=== PATIENT | male | born 2000 | race Caucasian/White ===

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

== ENCOUNTER 2019-06-23 21:24 | Emergency (ER) | payer OTHER ==
[2019-06-23 21:28] VITALS: BP 137/87; PULSE 78
[2019-06-23 22:08] VITALS: RESP 18
--- NOTE | 2019-06-23 22:16 | XR ---
EXAMINATION TYPE: XR chest 2V DATE OF EXAM: 06/23/2019 COMPARISON: 12/04/2016 HISTORY: Cough TECHNIQUE: FINDINGS: Heart and mediastinum are normal. Lungs are clear. Diaphragm is normal. Bony thorax appears normal. IMPRESSION: Normal chest. No change.
[2019-06-23] MEDS ORDERED: AMOXIC-POT CLAV 875MG STARTER PACK 2 TAB BTL PO STA (22:36)
--- NOTE | 2019-06-23 22:40 | ED ---
General Adult HPI - General Chief complaint: Upper Respiratory Infection Stated complaint: Cough Time Seen by Provider: 06/23/19 21:34 Source: patient, RN notes reviewed Mode of arrival: ambulatory Limitations: no limitations - History of Present Illness Initial comments: 19-year-old male presents to the emergency room for a chief complaint of congestion and cough. Patient states that he has been congested for about a week and a half and it does not seem to be improving. This is patient's main complaint. Patient has not checked a temperature at home so is not aware of fevers but did feel warm earlier today. Patient denies any swelling of the face. Patient has mild cough but states it is not significant. Patient does admit to vaping but denies smoking cigarettes. Denies headache or neck pain. Patient has no other complaints at this time including shortness of breath, chest pain, abdominal pain, nausea or vomiting, headache, or visual changes. - Related Data Previous Rx's Medication Instructions Recorded Amoxic-Pot Clav 875-125Mg 1 tab PO Q12HR #20 tablet 06/23/19 [Augmentin 875-125] Allergies Allergy/AdvReac Type Severity Reaction Status Date / Time No Known Allergies Allergy Verified 06/23/19 21:28 Review of Systems ROS Statement: Those systems with pertinent positive or pertinent negative responses have been documented in the HPI. ROS Other: All systems not noted in ROS Statement are negative. Past Medical History Past Medical History: Asthma History of Any Multi-Drug Resistant Organisms: None Reported Past Surgical History: No Surgical Hx Reported Past Psychological History: ADD/ADHD, Bipolar Smoking Status: Current every day smoker Past Alcohol Use History: None Reported Past Drug Use History: None Reported General Exam Limitations: no limitations General appearance: alert, in no apparent distress Head exam: Present: atraumatic, normocephalic, normal inspection Eye exam: Present: normal appearance, PERRL, EOMI. Absent: scleral icterus, conjunctival injection, periorbital swelling ENT exam: Present: normal exam, normal oropharynx, mucous membranes moist, TM's normal bilaterally, normal external ear exam, other (Patient is a tenderness on palpating the maxillary sinus however no erythema or edema.) Neck exam: Present: normal inspection, full ROM. Absent: tenderness, meningismus, lymphadenopathy Respiratory exam: Present: normal lung sounds bilaterally. Absent: respiratory distress, wheezes, rales, rhonchi, stridor Cardiovascular Exam: Present: regular rate, normal rhythm, normal heart sounds. Absent: systolic murmur, diastolic murmur, rubs, gallop, clicks GI/Abdominal exam: Present: soft, normal bowel sounds. Absent: distended, tenderness, guarding, rebound, rigid Neurological exam: Present: alert Course Vital Signs 06/23/19 06/23/19 06/23/19 21:26 22:07 22:40 Temperature 98.1 F 98.8 F Pulse Rate 78 Respiratory 20 18 Rate Blood Pressure 137/87 O2 Sat by Pulse 99 Oximetry 06/23/19 22:41 Temperature 98.8 F Pulse Rate 78 Respiratory 18 Rate Blood Pressure 137/87 O2 Sat by Pulse 99 Oximetry Medical Decision Making - Medical Decision Making Vitals are stable. Patient is afebrile. On exam patient does have tenderness of the maxillary sinuses. Exam is otherwise unremarkable. Uvula is midline, no tonsillar exudates bilaterally. Lungs are clear to auscultation. Tympanic membranes are nonerythematous. Full range of motion of the neck. No meningismus. Infleunza is negative. Chest XR is negative for acute cardiopulmonary process. At this time patient stating his ankle if his congestion. As symptoms have been ongoing for a week and a half he will be treated with Augmentin. He is taking Mucinex and nasal spray at home he will continue. He will return here for any worsening symptoms. These were discussed with him in depth and include facial swelling, high fevers, or headache. Girlfriend is at bedside and is in agreement as well. I discussed this case with attending Dr. Mccartney who agrees with this assessment and treatment plan. - Lab Data Lab Results 06/23/19 Range/Units 21:30 Influenza Type A RNA Not Detected (Not Detectd) Influenza Type B (PCR) Not Detected (Not Detectd) Disposition Clinical Impression: Sinusitis Disposition: HOME SELF-CARE Condition: Good Instructions (If sedation given, give patient instructions): Sinusitis (ED) Additional Instructions: Please take Augmentin as directed. Continue to take Mucinex and nasal spray. Follow-up with primary care in 1-2 days. If you have any worsening symptoms return to the emergency department. Prescriptions: Amoxic-Pot Clav 875-125Mg [Augmentin 875-125] 1 tab PO Q12HR #20 tablet Is patient prescribed a controlled substance at d/c from ED?: No Referrals: Genie Reaves MD [REFERRING] - 1-2 days Time of Disposition: 22:38
[2019-06-23 22:41] VITALS: TEMP 98.8
== END 2019-06-23 22:46 | disposition home or self-care (01) ==
LOC: EC 21:24
DX: J32.0 Chronic maxillary sinusitis (principal); F17.290 Nicotine dependence, other tobacco product, uncomplicated; Z87.09 Personal history of other diseases of the respiratory system
CPT/HCPCS: 71046; 87502; 99283

== ENCOUNTER 2020-02-12 00:34 | Emergency (ER) | payer OTHER ==
[2020-02-12 00:44] VITALS: BP 126/78; PULSE 67; RESP 15; TEMP 97.7
--- NOTE | 2020-02-12 01:16 | ED ---
Skin/Abscess/FB HPI - General Chief complaint: Skin/Abscess/Foreign Body Stated complaint: Abscess Time Seen by Provider: 02/12/20 00:51 Source: patient Mode of arrival: ambulatory - History of Present Illness Initial comments: This patient is 19-year-old man who presents to be evaluated for what he is is calling a cyst at his anus. The patient states that he had had a bowel movement at work tonight. Following that he noticed a lump at his anus. He went home and had someone take a look who told him there was a small purple lump there, patient denies yolette pain. He states there is a little discomfort. No abdominal symptoms. MD complaint: other -: hour(s) Location: buttocks Consistency: constant Improves with: none Worsens with: none Context: none Associated symptoms: denies other symptoms - Related Data Previous Rx's Medication Instructions Recorded Amoxic-Pot Clav 875-125Mg 1 tab PO Q12HR #20 tablet 06/23/19 [Augmentin 875-125] Hydrocortisone [Anusol-Hc] 30 gm TP BID #30 gram 02/12/20 Allergies Allergy/AdvReac Type Severity Reaction Status Date / Time No Known Allergies Allergy Verified 06/23/19 21:28 Review of Systems ROS Statement: Those systems with pertinent positive or pertinent negative responses have been documented in the HPI. ROS Other: All systems not noted in ROS Statement are negative. Constitutional: Denies: fever, chills Gastrointestinal: Denies: abdominal pain, nausea, vomiting, diarrhea, constipation Skin: Reports: as per HPI Past Medical History Past Medical History: Asthma History of Any Multi-Drug Resistant Organisms: None Reported Past Surgical History: No Surgical Hx Reported Past Psychological History: ADD/ADHD Smoking Status: Current some day smoker Past Alcohol Use History: None Reported Past Drug Use History: None Reported General Exam General appearance: alert, in no apparent distress GI/Abdominal exam: Present: soft. Absent: distended, tenderness, guarding, rebound, rigid, mass, pulsatile mass, hernia Rectal exam: Present: normal rectal tone, hemorrhoids (Patient has an approximately 1 cm hemorrhoid at approximately 9 o'clock position. No real tenderness. Does not appear thrombosed. No bleeding.). Absent: tenderness Neurological exam: Present: alert Skin exam: Present: warm, dry, intact, normal color. Absent: rash Course Vital Signs 02/12/20 00:38 Temperature 97.7 F Pulse Rate 67 Respiratory 15 Rate Blood Pressure 126/78 O2 Sat by Pulse 100 Oximetry Medical Decision Making - Medical Decision Making Discussed further care and follow-up as well as return parameters for hemorrhoid care. Disposition Clinical Impression: Hemorrhoid Disposition: HOME SELF-CARE Condition: Good Instructions (If sedation given, give patient instructions): Hemorrhoids (ED) Prescriptions: Hydrocortisone [Anusol-Hc] 30 gm TP BID #30 gram Is patient prescribed a controlled substance at d/c from ED?: No Referrals: None,Stated [Primary Care Provider] - 1-2 days
== END 2020-02-12 01:26 | disposition home or self-care (01) ==
LOC: EC 00:34
DX: K64.9 Unspecified hemorrhoids (principal); F17.200 Nicotine dependence, unspecified, uncomplicated
CPT/HCPCS: 99283

== ENCOUNTER 2020-04-24 13:34 | Emergency (ER) | payer OTHER ==
[2020-04-24 13:39] VITALS: BP 131/79; PULSE 72; RESP 20; TEMP 98
--- NOTE | 2020-04-24 14:17 | ED ---
General Adult HPI - General Chief complaint: Extremity Injury, Upper Stated complaint: R Hand Injury Time Seen by Provider: 04/24/20 13:40 Source: patient, RN notes reviewed Mode of arrival: ambulatory Limitations: no limitations - History of Present Illness Initial comments: 19-year-old male with a past medical history of asthma presents to the emergency room for a chief complaint of right hand injury. Patient states 4 days ago he was working on a car and he hit his right hand against the car. States that the pain is actually improved however when he supinates his hand he still feels pain in his wrist which prompted him to get evaluated. Patient denies any other injuries. Denies any proximal arm pain.Patient has no other complaints at this time including shortness of breath, chest pain, abdominal pain, nausea or vomiting, headache, or visual changes. - Related Data Home Medications Medication Instructions Recorded Confirmed Ibuprofen [Motrin Ib] 600 mg PO Q8H PRN 04/24/20 04/24/20 Allergies Allergy/AdvReac Type Severity Reaction Status Date / Time No Known Allergies Allergy Verified 04/24/20 14:23 Review of Systems ROS Statement: Those systems with pertinent positive or pertinent negative responses have been documented in the HPI. ROS Other: All systems not noted in ROS Statement are negative. Past Medical History Past Medical History: Asthma History of Any Multi-Drug Resistant Organisms: None Reported Past Surgical History: No Surgical Hx Reported Past Psychological History: ADD/ADHD Smoking Status: Current some day smoker Past Alcohol Use History: None Reported Past Drug Use History: None Reported General Exam Limitations: no limitations General appearance: alert, in no apparent distress Head exam: Present: atraumatic, normocephalic, normal inspection Eye exam: Present: normal appearance, PERRL, EOMI. Absent: scleral icterus, conjunctival injection, periorbital swelling ENT exam: Present: normal exam, mucous membranes moist Neck exam: Present: normal inspection, full ROM. Absent: tenderness, meningismus, lymphadenopathy Respiratory exam: Present: normal lung sounds bilaterally. Absent: respiratory distress, wheezes, rales, rhonchi, stridor Cardiovascular Exam: Present: regular rate, normal rhythm, normal heart sounds. Absent: systolic murmur, diastolic murmur, rubs, gallop, clicks GI/Abdominal exam: Present: soft, normal bowel sounds. Absent: distended, tenderness, guarding, rebound, rigid Extremities exam: Present: full ROM (Full range of motion of the right hand and wrist without pain), tenderness (No tenderness to the right hand or wrist. No scaphoid tenderness.), normal capillary refill (Capillary refill less than 2 seconds, radial pulse 2+ in the right upper extremity.), other (Sensation intact right upper extremity. When patient supinates right hand he does experience pain in the volar aspect of the right wrist.). Absent: joint swelling (No significant swelling right hand or wrist.) Course Vital Signs 04/24/20 13:38 Temperature 98.0 F Pulse Rate 72 Respiratory 20 Rate Blood Pressure 131/79 O2 Sat by Pulse 98 Oximetry Procedures - Orthopedic Splinting/Casting Injury #1 Side: right Upper Extremity Injury Location: wrist Upper Extremity Immobilizer: volar splint Additional Comments: Neurovascular status intact Medical Decision Making - Medical Decision Making Vitals are stable. Patient does not have any tenderness in the right hand or dorsum of the right wrist. He doesn't tenderness to the ulnar styloid. No erythema or abrasions. There is minimal edema of the ulnar styloid. Neurovascular status intact right upper extremity. X-ray of the right wrist shows a fracture of the ulnar styloid. There is a probable old avulsion fracture at the base of the fifth metacarpal however no acute fractures and the right hand. Patient was placed in a volar wrist splint and referred to orthopedics. Discussed rice therapy and Tylenol for pain. He will return here for any worsening symptoms. Disposition Clinical Impression: Fracture of ulnar styloid Disposition: HOME SELF-CARE Condition: Good Instructions (If sedation given, give patient instructions): Wrist Fracture in Adults (ED) Additional Instructions: Please take Motrin and Tylenol for pain. Please rest ice and elevate the right wrist. Keep splint dry. Follow-up with orthopedics by calling for the earliest appointment. Return to the emergency room for any worsening symptoms. Is patient prescribed a controlled substance at d/c from ED?: No Referrals: Lonnie Escobedo MD [STAFF PHYSICIAN] - 1-2 days Time of Disposition: 15:07
--- NOTE | 2020-04-24 14:34 | XR ---
EXAMINATION TYPE: XR hand complete RT DATE OF EXAM: 04/24/2020 COMPARISON: None HISTORY: Pain TECHNIQUE: Three-view right hand FINDINGS: Within the hand, No acute fractures or dislocations are evident. Soft tissues are normal. J oint spaces are preserved. Note is made of an avulsion at the ulnar styloid. IMPRESSION: 1. Normal three-view right hand. 2. Fracture of the ulnar styloid
--- NOTE | 2020-04-24 14:35 | XR ---
EXAMINATION TYPE: XR wrist complete RT DATE OF EXAM: 04/24/2020 COMPARISON: None HISTORY: Pain TECHNIQUE: Right wrist is examined in 4 views. FINDINGS: There is a transverse fracture of the ulnar styloid. Joint spaces are preserved. On these images a small nondisplaced avulsion at the base of the fifth me tacarpal may be present. IMPRESSION: 1. Fracture of the ulnar styloid. 2. Probable old avulsion at the base of the fifth metacarpal.
== END 2020-04-24 15:12 | disposition home or self-care (01) ==
LOC: EC 13:34
DX: S52.611A Displaced fracture of right ulna styloid process, initial encounter for closed fracture (principal); F17.200 Nicotine dependence, unspecified, uncomplicated; W22.8XXA Striking against or struck by other objects, initial encounter
CPT/HCPCS: 29125; 99283

== ENCOUNTER 2021-03-05 03:31 | Emergency (ER) | payer OTHER ==
[2021-03-05 03:37] VITALS: BP 106/68; PULSE 81; RESP 18; TEMP 98.1
[2021-03-05] MEDS ORDERED: ACET/COD 300 MG/30 MG STARTER PACK 6 TAB BTL PO STA (03:41)
[2021-03-05] MEDS ORDERED: PENICILLIN VK 500MG STARTER 4 TAB BTL PO STA (03:41)
[2021-03-05] MEDS ORDERED: Acetaminophen-Codeine 300-30mg TAB PO STA (03:41)
[2021-03-05] MEDS ORDERED: IBUPROFEN 600 MG STARTER PACK 4 TAB BTL PO STA (03:41)
--- NOTE | 2021-03-05 03:41 | ED ---
ENT HPI - General Chief complaint: Dental/Oral Stated complaint: Dental Pain Time Seen by Provider: 03/05/21 03:39 Source: patient, RN notes reviewed, old records reviewed Mode of arrival: ambulatory Limitations: no limitations - History of Present Illness Initial comments: This is a 20-year-old male DF for evaluation known history of dental caries and fractured teeth. Patient is 45 months of severe dental pain and dental caries. Patient states this new set of symptoms started a day or 2 ago and is been increasing. No fevers no significant abscess that he notes. Patient is able to open mouth without difficulty no significant swelling to face and patient has no other complaints MD complaint: tooth pain -: days(s) Location: tooth # Severity: moderate Severity scale (1-10): 7 Quality: sharp Consistency: intermittent Improves with: none Worsens with: none Context-Epistaxis: history of similar Context- Dental: history of dental caries, poor dental care, tooth knocked out Associated Symptoms: sore throat - Related Data Home Medications Medication Instructions Recorded Confirmed Ibuprofen [Motrin Ib] 600 mg PO Q8H PRN 04/24/20 04/24/20 Allergies Allergy/AdvReac Type Severity Reaction Status Date / Time No Known Allergies Allergy Verified 03/05/21 03:37 Review of Systems ROS Statement: Those systems with pertinent positive or pertinent negative responses have been documented in the HPI. ROS Other: All systems not noted in ROS Statement are negative. Past Medical History Past Medical History: Asthma History of Any Multi-Drug Resistant Organisms: None Reported Past Surgical History: No Surgical Hx Reported Past Psychological History: ADD/ADHD Smoking Status: Current some day smoker Past Alcohol Use History: Rare Past Drug Use History: None Reported General Exam General appearance: alert, in no apparent distress Head exam: Present: atraumatic, normocephalic, normal inspection Eye exam: Present: normal appearance, PERRL, EOMI. Absent: scleral icterus, conjunctival injection, periorbital swelling ENT exam: Present: normal exam, mucous membranes moist Neck exam: Present: normal inspection. Absent: tenderness, meningismus, lymphadenopathy Respiratory exam: Present: normal lung sounds bilaterally. Absent: respiratory distress, wheezes, rales, rhonchi, stridor Cardiovascular Exam: Present: regular rate, normal rhythm, normal heart sounds. Absent: systolic murmur, diastolic murmur, rubs, gallop, clicks GI/Abdominal exam: Present: soft, normal bowel sounds. Absent: distended, tenderness, guarding, rebound, rigid Extremities exam: Present: normal inspection, full ROM, normal capillary refill. Absent: tenderness, pedal edema, joint swelling, calf tenderness Back exam: Present: normal inspection Neurological exam: Present: alert, oriented X3, CN II-XII intact Psychiatric exam: Present: normal affect, normal mood Skin exam: Present: warm, dry, intact, normal color. Absent: rash Course Vital Signs 03/05/21 03:34 Temperature 98.1 F Pulse Rate 81 Respiratory 18 Rate Blood Pressure 106/68 O2 Sat by Pulse 96 Oximetry - Reevaluation(s) Reevaluation #1: 03/05/21 03:40 Medical record is reviewed Reevaluation #2: 03/05/21 03:40 Patient has adequate pain control Reevaluation #3: 03/05/21 03:40 Patient informed results and questions answered Medical Decision Making - Medical Decision Making 20 male to the emergency department for dental abscess with dental caries. Patient given pain control and antibiotics and can be discharged home Disposition Clinical Impression: Dental abscess, Dental caries Disposition: HOME SELF-CARE Condition: Good Instructions (If sedation given, give patient instructions): Dental Abscess (ED), Toothache (ED) Is patient prescribed a controlled substance at d/c from ED?: No Referrals: None,Stated [Primary Care Provider] - 1-2 days
[2021-03-05] MEDS ORDERED: PENICILLIN V POTASSIUM 250 MG TAB PO ONE (03:45)
== END 2021-03-05 04:13 | disposition home or self-care (01) ==
LOC: EC 03:31
DX: K04.7 Periapical abscess without sinus (principal); K02.9 Dental caries, unspecified; J45.909 Unspecified asthma, uncomplicated; F90.9 Attention-deficit hyperactivity disorder, unspecified type; F17.200 Nicotine dependence, unspecified, uncomplicated
CPT/HCPCS: 99282

== ENCOUNTER 2023-07-03 20:25 | Emergency (ER) | payer OTHER ==
--- NOTE | 2023-07-03 21:05 | ED ---
ENT HPI - General Chief complaint: Dental/Oral Stated complaint: Tooth pain Time Seen by Provider: 07/03/23 20:30 Source: patient Mode of arrival: ambulatory Limitations: no limitations - History of Present Illness Initial comments: 23-year-old male presenting with chief complaint of dental pain. Patient states that 3 days ago she broke one of his front teeth, he is now having dental pain. He also has some CAD left upper jaw. He is concerned for infection. He does not currently have a dentist. Denies fever, chills, difficulty breathing or swallowing, trismus, muffled voice, drooling. - Related Data Home Medications Medication Instructions Recorded Confirmed Ibuprofen [Motrin Ib] 600 mg PO Q8H PRN 04/24/20 04/24/20 Previous Rx's Medication Instructions Recorded Penicillin V Potassium [Pen Vee K] 500 mg PO Q6HR #28 tablet 03/05/21 Penicillin V Potassium [Pen Vee K] 500 mg PO QID 7 Days #28 tablet 07/03/23 Allergies Allergy/AdvReac Type Severity Reaction Status Date / Time No Known Allergies Allergy Verified 07/03/23 20:30 Review of Systems ROS Statement: Those systems with pertinent positive or pertinent negative responses have been documented in the HPI. ROS Other: All systems not noted in ROS Statement are negative. Past Medical History Past Medical History: Asthma History of Any Multi-Drug Resistant Organisms: None Reported Past Surgical History: No Surgical Hx Reported Past Psychological History: ADD/ADHD Smoking Status: Current some day smoker Past Alcohol Use History: Rare Past Drug Use History: None Reported General Exam Limitations: no limitations General appearance: alert, in no apparent distress Head exam: Present: atraumatic, normocephalic Eye exam: Present: normal appearance Expanded Mouth exam: Present: normal external inspection, tongue normal. Absent: drooling, trismus, muffled voice Teeth exam: Present: fractured tooth #, dental tenderness # Throat exam: normal inspection Neck exam: Present: normal inspection Respiratory exam: Absent: respiratory distress Cardiovascular Exam: Present: regular rate Neurological exam: Present: alert, oriented X3 Psychiatric exam: Present: normal affect, normal mood Skin exam: Present: warm, dry Course Vital Signs 07/03/23 20:27 Temperature 98.2 F Pulse Rate 79 Respiratory 18 Rate Blood Pressure 138/83 O2 Sat by Pulse 100 Oximetry Medical Decision Making - Medical Decision Making Was pt. sent in by a medical professional or institution (VJ Perez, DRAWING KILN SUPERVISOR, urgent care, hospital, or jail...) When possible be specific @ -No Did you speak to anyone other than the patient for history (EMS, parent, family, police, friend...)? What history was obtained from this source @ -No Did you review nursing and triage notes (agree or disagree)? Why? @ -I reviewed and agree with nursing and triage notes Were old charts reviewed (outside hosp., previous admission, EMS record, old EKG, old radiological studies, urgent care reports/EKG's, jail records)? Report findings @ -No old charts were reviewed Differential Diagnosis (chest pain, altered mental status, abdominal pain women, abdominal pain men, vaginal bleeding, weakness, fever, dyspnea, syncope, headache, dizziness, GI bleed, back pain, seizure, CVA, palpatations, mental health, musculoskeletal)? @ -Differential includes toothache, dental abscess, Romeo's angina, this is not an all-inclusive list EKG interpreted by me (3pts min.). @ -As above X-rays interpreted by me (1pt min.). @ -None done CT interpreted by me (1pt min.). @ -None done U/S interpreted by me (1pt. min.). @ -None done What testing was considered but not performed or refused? (CT, X-rays, U/S, labs)? Why? @ -None What meds were considered but not given or refused? Why? @ -None Did you discuss the management of the patient with other professionals (professionals i.e. VJ Perez, DRAWING KILN SUPERVISOR, lab, RT, psych nurse, administrator social welfare, associate professor of church music, teacher, public health service officer, rn case manager)? Give summary @ -No Was smoking cessation discussed for >3mins.? @ -No Was critical care preformed (if so, how long)? @ -No Were there social determinants of health that impacted care today? How? (Homelessness, low income, unemployed, alcoholism, drug addiction, transportation, low edu. Level, literacy, decrease access to med. care, senior care, rehab)? @ -No Was there de-escalation of care discussed even if they declined (Discuss DNR or withdrawal of care, Hospice)? DNR status @ -No What co-morbidities impacted this encounter? (DM, HTN, Smoking, COPD, CAD, Cancer, CVA, ARF, Chemo, Hep., AIDS, mental health diagnosis, sleep apnea, morbid obesity)? @ -None Was patient admitted / discharged? Hospital course, mention meds given and route, prescriptions, significant lab abnormalities, going to OR and other pertinent info. @ -23-year-old male present with chief complaint of dental pain. He broke his tooth 3 days ago and has been having increased pain along with some swelling. On physical exam there is a noticeable fracture of the tooth. There is a small amount of swelling to the left upper side. Patient will be placed on penicillin for prophylaxis, he is provided with dental clinic for follow-up. Discharged home. Follow-up with PCP. Report back to ER with any new or worsening symptoms. Discussed return parameters and answered all questions. Patient conveyed verbal understanding and agreed to the plan. I discussed this case in detail with my attending Dr. García Undiagnosed new problem with uncertain prognosis? @ -No Drug Therapy requiring intensive monitoring for toxicity (Heparin, Nitro, Insulin, Cardizem)? @ -No Were any procedures done? @ -No Diagnosis/symptom? @ -Tooth ache Acute, or Chronic, or Acute on Chronic? @ -Acute Uncomplicated (without systemic symptoms) or Complicated (systemic symptoms)? @ -Uncomplicated Side effects of treatment? @ -No Exacerbation, Progression, or Severe Exacerbation? @ -No Poses a threat to life or bodily function? How? (Chest pain, [place], [place], pneumonia, PE, COPD, DKA, ARF, appy, cholecystitis, CVA, Diverticulitis, Homicidal, Suicidal, threat to staff... and all critical care pts) @ -No Disposition Clinical Impression: Toothache Disposition: HOME SELF-CARE Condition: Good Instructions (If sedation given, give patient instructions): Toothache (ED) Additional Instructions: Please follow up with the [facility]. [facility] [place] [address]. Phone number for new patients or [phone] for existing patients. Prescriptions: Penicillin V Potassium [Pen Vee K] 500 mg PO QID 7 Days #28 tablet Is patient prescribed a controlled substance at d/c from ED?: No Referrals: None,Stated [Primary Care Provider] - 1-2 days Time of Disposition: 21:04
[2023-07-03 21:18] VITALS: BP 138/83; PULSE 79; RESP 18; TEMP 98.2
== END 2023-07-03 21:11 | disposition home or self-care (01) ==
LOC: EC 20:25
DX: K08.89 Other specified disorders of teeth and supporting structures (principal); J45.909 Unspecified asthma, uncomplicated; F17.200 Nicotine dependence, unspecified, uncomplicated
CPT/HCPCS: 99282

== ENCOUNTER 2024-03-02 12:20 | Emergency (ER) | payer OTHER ==
[2024-03-02 12:25] VITALS: RESP 18
[2024-03-02] MEDS: IBUPROFEN 600 MG TAB PO STA (13:04)
[2024-03-02] MEDS: DIPHENHYDRAMINE PO STA (13:05)
[2024-03-02] MEDS: SIMETH PO STA (13:05)
[2024-03-02] MEDS: [UNRECOGNIZED DRUG - OTHER] PO STA (13:05)
[2024-03-02] MEDS: MAG HYDROX PO STA (13:05)
[2024-03-02] MEDS: AL HYDROX PO STA (13:05)
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
[2024-03-02 13:25] VITALS: BP 136/90; PULSE 66; TEMP 99
== END 2024-03-02 13:24 | disposition home or self-care (01) ==
LOC: EC 12:20
CPT/HCPCS: 99282